=== PATIENT | female | born 1965 | race Caucasian/White ===

== ENCOUNTER 2017-01-21 04:56 | Emergency (ER) | payer OTHER ==
[2017-01-21] MEDS ORDERED: methylPREDNISolone 125 MG* 2 ML VIAL IV ONE (05:59)
[2017-01-21] MEDS ORDERED: Albuterol/Ipratropium NEB.SOL* Albuterol 2.5 MG/Ipratropium 0.5 MG 3 ML INH ONE (05:59)
[2017-01-21] MEDS ORDERED: Butalb/Acetamin/Caff TAB* 1 TAB PO ONE (06:02)
[2017-01-21 06:43] LABS: Hematocrit 31 % (35-47); Hemoglobin 9.6 g/dl (12.0-16.0); Mean Corpuscular HGB Conc 31 g/dl (31-36); Mean Corpuscular Hemoglobin 21 pg (27-31); Mean Corpuscular Volume 68 fL (80-97); Mean Platelet Volume 8 um3 (7.4-10.4); Red Blood Count 4.53 10^6/ul (4.0-5.4); Red Cell Distribution Width 17 % (10.5-15); White Blood Count 10.3 10^3/ul (3.5-10.8)
[2017-01-21 06:46] LABS: Add Diff/Slide Review? Slide Review Added; Comments Flag Yes
[2017-01-21 06:58] LABS: Albumin 4.1 g/dL (3.2-5.2); BUN/Creatinine Ratio 13.4 (8-20); Calcium 9.2 mg/dL (8.6-10.3); EGFR African American 118.4 (>60); EGFR Non-African American 92.1 (>60); Globulin 2.9 g/dL (2-4); Potassium 3.7 mmol/L (3.5-5.0); Total Bilirubin 0.6 mg/dL (0.2-1.0)
[2017-01-21 07:00] LABS: Troponin I 0.02 ng/mL (<0.04)
[2017-01-21] MEDS ORDERED: methylPREDNISolone 125 MG* 2 ML VIAL IM ONE (07:09)
--- NOTE | 2017-01-21 08:09 | RAD ---
INDICATION: Shortness of breath and headache COMPARISON: None TECHNIQUE: PA and lateral views of the chest were obtained. FINDINGS: The heart and mediastinum are normal in size and contour. The lungs are grossly clear. There is no evidence of large pleural effusion. Visualized bones are normal for the patient's age. There is no radiographic evidence of free air beneath the diaphragm IMPRESSION: No radiographic evidence of acute cardiopulmonary disease.
--- NOTE | 2017-01-21 08:10 | RAD ---
INDICATION: Headache COMPARISON: None. TECHNIQUE: Contiguous axial sections of the brain were obtained from the skull base to the vertex without contrast. FINDINGS: The ventricles, cisterns and sulci are within normal limits. The fitch-white matter differentiation is adequately maintained and there is no sulcal effacement. No significant focal abnormality or mass effect is present. There is no evidence for intracranial hemorrhage. No significant focal osseous abnormality is present. There is mild mucosal thickening of the ethmoid air cells. Remaining visualized paranasal sinuses are adequately aerated. The mastoid air cells are well-aerated. IMPRESSION: Mild paranasal sinus disease of the ethmoid air cells.
--- NOTE | 2017-01-21 08:24 | RAD ---
INDICATION: Sinusitis. COMPARISON: There are no prior studies available for comparison. TECHNIQUE: Contiguous axial sections of the axial images of the sinuses were obtained and reconstructed in the coronal and sagittal planes. FINDINGS: There is mild mucosal thickening within the frontal, ethmoid and maxillary sinuses. The sphenoid sinus appears clear. There is mild narrowing of the ostiomeatal complexes secondary to mucosal thickening. The visualized portion of the mastoid air cells and middle ear cavities appear clear. There is moderate deviation of the nasal septum toward the right side. The nasal passageways were otherwise clear. IMPRESSION: FINDINGS SUGGESTIVE OF MILD CHRONIC SINUSITIS.
[2017-01-21] MEDS ORDERED: Albuterol HFA INHALER* 8 gm MDI INH PRN (08:30)
--- NOTE | 2017-01-21 08:44 | ED ---
Davon Olmos Benjamin, scribed for Jose Daniel Lopez MD on 01/21/17 at 0809 . Progress - Progress Note Progress Note: Signout pt from Dr. Au, pending CT Head, CT Sinus, and CXR radiology report. - Results/Orders Results/Orders: CT HEAD: No acute brain parenchymal abnormality. No hemorrhage, mass or acute territorial infarct. Minimal mucoperiosteal thickening paranasal sinuses. Visualized mastoid air cells clear. CT SINUS: IMPRESSION: FINDINGS SUGGESTIVE OF MILD CHRONIC SINUSITIS. CXR: NAD. Re-Evaluation - Re-Evaluation First Eval Re-Evaluation Time: 08:31 Comment: Pt states that the breathing tx helped. Reviewed CT head and CT sinus results with the pt. Explained the discharge instructions. Course/Dx - Diagnoses Provider Diagnoses: Viral syndrome The documentation as recorded by the Davon vines Benjamin accurately reflects the service I personally performed and the decisions made by me, Jose Daniel Lopez MD.
[2017-01-21 08:49] VITALS: BP 155/87
== END 2017-01-21 08:50 ==
LOC: ED 04:56
DX: B34.9 Viral infection, unspecified (principal)
CPT/HCPCS: 36415; 70450; 70486; 71020; 80053; 83880; 84484; 85025; 85060; 85379; 85610; 85730; 93005; 94640; 96374; 99282; A9270-GY; J2930